=== PATIENT | male | born 1985 | race Caucasian/White ===

== ENCOUNTER 2023-07-04 20:48 | Emergency (ER) | payer OTHER, SELFPAY ==
[2023-07-04 20:54] VITALS: BP 156/74; PULSE 92; RESP 20; TEMP 36.5; O2SAT 97
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
== END 2023-07-05 00:17 | disposition home or self-care (01) ==
PROVIDERS: Emergency Provider Physician Assistant
DX: S09.22XA Traumatic rupture of left ear drum, initial encounter (principal); W51.XXXA Accidental striking against or bumped into by another person, initial encounter
CPT/HCPCS: 99283